=== PATIENT | female | born 1990 | race Two or more races ===

== ENCOUNTER 2017-09-09 17:57 | Emergency (ER) | payer OTHER ==
[~2017-09-09] VITALS: Ht 175.3 cm; Wt 57.0 kg
[2017-09-09 19:07] LABS: HEMATOCRIT 42.2 % (36.0-46.0); HEMOGLOBIN 14.8 G/DL (11.9-15.5); MCH 31.2 PG (29.0-34.0); MCHC 35.1 G/DL (30.0-36.0); MCV 88.8 FL (83-99); PLATELET COUNT 317 K/uL (156-360); RBC DIS.WIDTH-CV 12.1 % (11.8-14.6); RBC DIS.WIDTH-SD 39.8 % (39-53); RED BLOOD COUNT 4.75 M/uL (3.80-5.20); WHITE BLOOD COUNT 11.7 K/uL (4.1-10.2)
[2017-09-09 19:10] LABS: APPEARANCE CLEAR ((CLEAR)); BILIRUBIN NEGATIVE; BLOOD NEGATIVE; COLOR STRAW ((YELLOW)); GLUCOSE (STRIP) NEGATIVE; KETONES NEGATIVE; LEUKOCYTES NEGATIVE; NITRITE NEGATIVE; PROTEIN (STRIP) NEGATIVE; SPECIFIC GRAVITY 1.003 (1.000-1.030); UCUL ADDED? NO; UROBILINOGEN 0.2 MG/DL (0.2-1.0)
[2017-09-09 19:17] LABS: D-DIMER ELISA < 150.00 ng/mLDDU (<230)
[2017-09-09 19:24] LABS: ALBUMIN 4.4 g/dL (3.2-4.8)
[2017-09-09 19:25] LABS: CHLORIDE 102 mEq/L (99-109); POTASSIUM 3.4 mEq/L (3.7-5.4); SODIUM 140 mEq/L (136-147)
[2017-09-09 19:27] LABS: GLUCOSE 113 mg/dL (70-99); TOTAL PROTEIN 7.5 g/dL (6.4-8.3)
[2017-09-09 19:29] LABS: TOTAL BILIRUBIN 1.6 mg/dL (0.0-1.0)
[2017-09-09 19:30] LABS: ALKALINE PHOSPHATASE 72 IU/L (3-129)
[2017-09-09 19:31] LABS: CREATININE 0.8 mg/dL (0.6-1.3); GFR ESTIMATE (CALCULATED) > 59 mL/min/
[2017-09-09 19:32] LABS: AST (GOT) 18 IU/L (2-34); UREA NITROGEN (BUN) 6 mg/dL (9-23)
[2017-09-09 19:33] LABS: ALT (GPT) 17 IU/L (3-49)
[2017-09-09 19:39] LABS: QUANTITATIVE HCG < 4.0 MIU/ML
[2017-09-09] MEDS ORDERED: BENADRYL25 MG PO (20:27)
[2017-09-09] MEDS ORDERED: PEPCID20 MG PO (20:27)
[2017-09-09] MEDS ORDERED: MEDROL DOSEPAK4 MG PO (20:27)
[2017-09-09 20:37] VITALS: BP 146/98
[2017-09-09 20:37] LABS: THYROTROPIN (TSH) 1.7 MIU/L (0.4-5.5)
== END 2017-09-09 20:38 | disposition home or self-care (01) ==
LOC: EME 17:57
PROVIDERS: Physician Assistant
DX: K12.0 Recurrent oral aphthae (principal); R21 Rash and other nonspecific skin eruption; E87.6 Hypokalemia; I10 Essential (primary) hypertension; R94.31 Abnormal electrocardiogram [ECG] [EKG]; F90.9 Attention-deficit hyperactivity disorder, unspecified type; Z91.018 Allergy to other foods
CPT/HCPCS: 71046; 80053; 81003; 84443; 84702; 85027; 85379; 93005; J7030